=== PATIENT | female | born 1950 | race Caucasian/White ===

== ENCOUNTER 2017-06-27 11:25 | Outpatient (CLI) | payer MEDICARE, BC | END 2017-06-27 11:26 | disposition home or self-care (01) | LOC: BICMAMMO 11:25 | PROVIDERS: ATTEND Obstetrics & Gynecology | DX: R92.8 Other abnormal and inconclusive findings on diagnostic imaging of breast (principal) | CPT/HCPCS: 76642; 77066; G0279 ==

== ENCOUNTER 2019-07-17 12:47 | Outpatient (CLI) | payer MEDICARE, BC ==
--- NOTE | 2019-07-17 13:23 | MMO ---
Bilateral MAMMO Bilat Screen [facility]. CLINICAL HISTORY: Patient is 68 years old and is seen for screening. The patient has no family history of breast cancer. The patient has no personal history of cancer. VIEWS: The views performed were: bilateral craniocaudal with tomosynthesis and bilateral mediolateral oblique with tomosynthesis. FILMS COMPARED: The present examination has been compared to prior imaging studies performed at [facility] on 11/29/2015, 06/07/2016, 12/18/2016 and 07/11/2017. This study has been interpreted with the assistance of computer-aided detection. MAMMOGRAM FINDINGS: The breasts are heterogeneously dense, which could obscure a lesion on mammography. There are no suspicious masses, suspicious calcifications, or new areas of architectural distortion. IMPRESSION: THERE IS NO MAMMOGRAPHIC EVIDENCE OF MALIGNANCY. A ROUTINE FOLLOW-UP MAMMOGRAM IN 1 YEAR IS RECOMMENDED. THE RESULTS OF THIS EXAM WERE SENT TO THE PATIENT. ACR BI-RADS Category 1 - Negative MAMMOGRAPHY NOTE: 1. A negative mammogram report should not delay a biopsy if a dominant of clinically suspicious mass is present. 2. Approximately 10% to 15% of breast cancers are not detected by mammography. 3. Adenosis and dense breasts may obscure an underlying neoplasm. Reported by: TIMOTHY GARCIA MD Electonically Signed: [id number]
== END 2019-07-17 12:48 | disposition home or self-care (01) ==
LOC: BICMAMMO 12:47
PROVIDERS: ATTEND Nurse Practitioner Adult Health
DX: Z12.31 Encounter for screening mammogram for malignant neoplasm of breast (principal)
CPT/HCPCS: 77063; 77067

== ENCOUNTER 2020-02-15 11:01 | Outpatient (CLI) | payer MEDICARE, BC ==
--- NOTE | 2020-02-15 11:32 | BD ---
DEXA BONE DENSITY EXAM: DATE: 02/15/2020. COMPARISON: 12/24/2016. HISTORY: Postmenopausal female, screening for osteoporosis. FINDINGS: Lumbar Spine: BMD (g/cm2) L1 0.048 T-Score: 0.5 Previous T-Score: 0.0 L2 1.220 T-Score: 1.7 Previous T-Score: 1.4 L3 1.347 T-Score: 2.4 Previous T-Score: 2.6 L4 1.328 T-Score: 2.4 Previous T-score: 1.3 L1-L4 1.240 T-Score: 1.8 Previous T-score: 1.3 Femoral Neck: 0.860 T-Score: 0.1 Previous T-Score: 0.1 Total Femur: 1.085 T-Score: 1.2 Previous T-score: 0.4 FRAX-WHO fracture risk assessment tool was not reported as T-scores are at or above -1.0 IMPRESSION: Normal bone mineral density exam. Transcribed Date/Time: 02/15/2020 11:56 AM
== END 2020-02-15 11:02 | disposition home or self-care (01) ==
LOC: BICMAMMO 11:01
PROVIDERS: ATTEND Family Medicine
DX: Z13.820 Encounter for screening for osteoporosis (principal); Z78.0 Asymptomatic menopausal state
CPT/HCPCS: 77080

== ENCOUNTER 2020-10-03 19:00 | Outpatient (CLI) | payer MEDICARE, BC | END 2020-10-03 19:01 | disposition home or self-care (01) | LOC: SLEEPLAB 19:00 | PROVIDERS: ATTEND Internal Medicine | DX: G47.33 Obstructive sleep apnea (adult) (pediatric) (principal); R06.83 Snoring; G47.10 Hypersomnia, unspecified; G47.00 Insomnia, unspecified; I10 Essential (primary) hypertension; K21.9 Gastro-esophageal reflux disease without esophagitis | CPT/HCPCS: 95810 ==

== ENCOUNTER 2020-11-18 12:33 | Outpatient (CLI) | payer MEDICARE, BC | END 2020-11-18 12:34 | disposition home or self-care (01) | LOC: BICMAMMO 12:33 | PROVIDERS: ATTEND Nurse Practitioner Adult Health | DX: Z12.31 Encounter for screening mammogram for malignant neoplasm of breast (principal) | CPT/HCPCS: 77063; 77067 ==

== ENCOUNTER 2022-01-29 09:55 | Outpatient (CLI) | payer MEDICARE, BC ==
[2022-01-29 10:56] LABS: #Monocytes 0.7 10x3/uL (0.0-1.1); #Neutrophils 4.2 10x3/uL (1.5-8.4); %Basophils 0.8 % (0.0-2.0); %Lymphocytes 26.3 % (18.0-47.0); %Monocytes 9.3 % (0.0-10.0); %Neutrophils 56.3 % (40.0-75.0); Hemoglobin 13.3 g/dL (12.0-15.5); Mean Corpuscular HGB CONC 32.4 g/dL (32.0-36.0); Mean Corpuscular Hemoglobin 28.5 pg (27.0-33.0); Mean Platelet Volume 9.7 fl (7.4-10.4); Platelet Count 324 10x3/uL (150-450); RBC Distribution Width 14.7 % (11.5-14.5); Red Blood Cell (RBC) Count 4.67 10x6/uL (3.90-5.03); White Blood Cell (WBC) Count 7.4 10x3/uL (3.5-10.5)
[2022-01-29 10:57] LABS: #Basophils 0.1 10x3/uL (0.0-0.2); #Eosinphils 0.5 10x3/uL (0.0-0.5)
[2022-01-29 11:08] LABS: Prothrombin Time 10.9 sec (9.5-12.1)
[2022-01-29 11:18] LABS: Anion Gap 13 mmol/L (10-20); BUN (Urea Nitrogen) 16 mg/dL (9.8-20.1); Calc. Creatinine Clearance 0 mL/min (70-130); Calcium 9.3 mg/dL (7.8-10.44); Carbon Dioxide 29 mmol/L (23-31); Chloride 101 mmol/L (98-107); Estimated GFR 73; Glucose 93 mg/dL (80-115); Potassium 4.1 mmol/L (3.5-5.1); Sodium 139 mmol/L (136-145)
== END 2022-01-29 09:56 | disposition home or self-care (01) ==
LOC: LABBT 09:55
PROVIDERS: ATTEND Orthopaedic Surgery
DX: Z01.818 Encounter for other preprocedural examination (principal); M17.11 Unilateral primary osteoarthritis, right knee
CPT/HCPCS: 80048; 85025; 85610; 87081; 93005; 93010

== ENCOUNTER 2022-03-26 10:34 | Outpatient (CLI) | payer MEDICARE, BC | END 2022-03-26 10:35 | disposition home or self-care (01) | LOC: BICMAMMO 10:34 | PROVIDERS: ATTEND Nurse Practitioner Adult Health | DX: Z12.31 Encounter for screening mammogram for malignant neoplasm of breast (principal) | CPT/HCPCS: 77063; 77067 ==